=== PATIENT | female | born 1940 | race Caucasian/White ===

== ENCOUNTER 2020-06-11 08:01 | Emergency (ER) | payer MEDICARE, SELFPAY ==
[2020-06-11 08:13] VITALS: BP 149/86; PULSE 93; RESP 18; TEMP 36.7; O2SAT 100
--- NOTE | 2020-06-11 08:18 | ED.GENADULT ---
HPI - General Adult General Chief complaint: Back Pain/Injury Stated complaint: Lower back pain Time Seen by Provider: 06/11/20 08:18 Source: patient and RN notes reviewed Mode of arrival: ambulatory Limitations: no limitations History of Present Illness HPI narrative: 80-year-old female presents with complaints of diffused lower back pain for the past 4 days. Ibuprofen 600mg (last on 06/10/20 @22:00) and heat with little to no relief. Denies new injuries or falls. Denies radiating pain, numbness, or tingling. Denies fever or chills. No upper or lower extremity pain or weakness. Exacerbating factors consist of prolong sitting. Denies nausea, vomiting, or abdominal pain. Denies problems with urinating or having a bowel movement, LBM on 06/10/20 per patient and normal. No flank pain or hematuria or dysuria. The patient reports she have not been diagnosed with COVID-19. The patient reports she is not waiting for the results of a COVID-19 lab test. The patient reports she do not have fever, chills, weakness, or fatigue. The patient reports she do not have a new or worsening cough or shortness of breath. Denies chest pain. The patient reports she do not have any rhinorrhea, congestion, sore throat, loss of taste, and diarrhea. Tolerating po intake well. Denies recent traveling. Denies concerns for COVID-19 or exposures been home with limited outdoor exposure except for essential household needs and return home. At this time, patient is not suspected of having COVID-19. Some parts of this dictation were generated by voice recognition software and may contain typographical and/or grammatical inaccuracies. Related Data Allergies Allergy/AdvReac Type Severity Reaction Status Date / Time No Known Allergies Allergy Verified 06/11/20 08:17 Review of Systems Review of Systems: Narrative: CONSTITUTIONAL: Denies fever, chills, sweats. EYES: Denies visual changes, redness, discharge. ENT: Denies rhinorrhea, congestion, sore throat, otalgia. CARDIOVASCULAR: Denies chest pain, palpitations, edema. RESPIRATORY: Denies dyspnea, wheezing, cough. GASTROINTESTINAL: Denies abdominal pain, nausea, vomiting, diarrhea. GENITOURINARY: Denies dysuria, hematuria, abnormal discharge. SKIN: Denies rash or itching. MUSCULOSKELETAL: Complains of diffused lower back pain. Denies joint pain or myalgia. NEUROLOGIC: Denies numbness or focal weakness. PSYCHIATRIC: Denies anxiety or depression. All systems reviewed & are unremarkable except as noted in HPI and below PMFSH Past Medical History Medical History (Updated 06/11/20 @ 08:42 by PHILIP Taveras) Degenerative joint disease of right hip Right clavicle fracture Surgical History Surgical History (Updated 06/11/20 @ 08:36 by PHILIP Taveras) History of arthroscopic knee surgery Right History of hip replacement, total Right History of hysterectomy 1982 Family History Family History Father Family history of premature coronary heart disease, Onset Age: 63 Patient's father is Mother Depression Social History Social History (Updated 06/11/20 @ 08:37 by PHILIP Taveras) Smoking status: Never smoker Tobacco type: cigarettes Second hand tobacco smoke exposure: No Alcohol intake: current Substance use: never Living arrangements: alone Occupation/Education: retired Gender identity (if verbalized by the patient): Female Exam Narrative: Exam Narrative: GENERAL: This is a well-nourished, well-developed patient, in no apparent distress. Talks in full sentences without deficits and ambulates with steady gait without dyspnea. HEAD: normocephalic, atraumatic. EYES: PERRL. Sclera clear/white. Vision is grossly intact. NECK: Neck supple, non-tender without lymphadenopathy, masses or thyromegaly. CARDIOVASCULAR: Regular rate and rhythm without murmurs, gallops, or ru
[2020-06-11] MEDS: KETOROLAC (*BKC) 60 MG/2 ML VIAL IM (08:35)
== END 2020-06-11 09:07 | disposition home or self-care (01) ==
PROVIDERS: Emergency Provider Nurse Practitioner Family; PCP Family Medicine
DX: M54.5 Low back pain (principal); M16.11 Unilateral primary osteoarthritis, right hip; Z96.641 Presence of right artificial hip joint
CPT/HCPCS: 81003; 96372; 99213; G0463; J1885

== ENCOUNTER 2020-10-30 08:00 | Emergency (ER) | payer MEDICARE, SELFPAY ==
--- NOTE | ~2020-10-30 | XR_ITS ---
EXAMINATION: XR hip LT min 2V DATE: 10/30/2020 08:58 INDICATION: Left hip pain. TECHNIQUE: 3 views of left hip were obtained. COMPARISON: Pelvis radiograph 01/10/2016 FINDINGS: Bone alignment is normal. No fracture. Left hip joint space is normal. IMPRESSION: 1. Normal left hip. Reviewed, dictated and finalized at location A. SETTER IMPRESSION: 1. Normal left hip.
--- NOTE | 2020-10-30 08:18 | ED.BACK ---
HPI - Back Pain/Injury General Chief Complaint: Extremity Problem,Nontraumatic Stated Complaint: severe left leg pain Time Seen by Provider: 10/30/20 08:16 Source: patient and RN notes reviewed Mode of arrival: ambulatory Limitations: no limitations History of Present Illness HPI Narrative: 80-year-old female presents with concern for pain that starts in her left buttock and shoots down her left thigh. She denies any injury, trauma, falls. Reports no pain when she is lying in bed, when she is sitting. Reports pain with transferring, walking. Reports she has been using a walker to assist with ambulation, she does not normally use a walker. Reports she has been using a chair on wheels to scoot around at home to avoid pain. Reports she has been taking ibuprofen with no relief. Reports history of low back pain, does not report current back pain. She denies perianal anesthesia, loss of bowel or bladder function, fever, abdominal pain, bruising, redness, swelling, rash. She denies groin pain. Denies dysuria, hematuria, flank pain. Denies calf redness, swelling, pain. MD elicited complaint: other (Left buttock and thigh pain) Related Data Allergies Allergy/AdvReac Type Severity Reaction Status Date / Time No Known Allergies Allergy Verified 10/30/20 08:16 Review of Systems Review of Systems: Narrative: CONSTITUTIONAL: Denies malaise, chills, sweats, or fever. CARDIOVASCULAR: Denies chest pain, palpitations, or edema. RESPIRATORY: Denies cough or dyspnea. GASTROINTESTINAL: Denies abdominal pain, nausea, vomiting, diarrhea, bloody, or mucous stools. GENITOURINARY: Denies dysuria or hematuria. SKIN: Denies rash, redness, bruising MUSCULOSKELETAL: Denies back pain. Reports right shooting leg pain NEUROLOGIC: Denies numbness, weakness All systems reviewed & are unremarkable except as noted in HPI and below PMFSH Past Medical History Medical History (Updated 10/30/20 @ 09:03 by Oneyda Robert NP) Degenerative joint disease of right hip Right clavicle fracture Surgical History Surgical History (Updated 06/11/20 @ 08:36 by PHILIP Taveras) History of arthroscopic knee surgery Right History of hip replacement, total Right History of hysterectomy 1982 Family History Family History Father Family history of premature coronary heart disease, Onset Age: 63 Patient's father is Mother Depression Social History Social History (Updated 06/11/20 @ 08:37 by PHILIP Taveras) Smoking status: Never smoker Tobacco type: cigarettes Second hand tobacco smoke exposure: No Alcohol intake: current Substance use: never Gender identity (if verbalized by the patient): Female Comments At time of signature, agree with nursing past medical, surgical, social and family history. There is no relevant family history pertinent to the presenting complaint Exam Narrative: Exam Narrative: GENERAL: Well-appearing, well-nourished, and in no acute distress. HEAD: Normocephalic, atraumatic. EYES: PERRLA and EOMI. NECK: Supple. No lymphadenopathy. CHEST: Clear to auscultation. No respiratory distress. HEART: Regular rate and rhythm. Distal pulses palpable and equal, cap refill <3 seconds ABDOMEN: Soft, nontender, nondistended, normal active bowel sounds, no palpable or pulsatile masses. No CVA tenderness MUSCULOSKELETAL: Normal range of motion and strength in all extremities; 5/5 strength with hip flexion and extension, dorsiflexion and extension, knee flexion and extension, plantar flexion and extension. Normal sensation in dermatomal distributions with sensitivity to light touch and pain. No midline back tenderness to palpation. No paraspinal tenderness. Transfers from lying to sitting to standing, patient slow to transfer, pain noted upon transfer SKIN: Warm, dry, no rash. No ecchymosis, erythema, open wounds to back. NEURO: No focal deficits
[2020-10-30 08:26] VITALS: BP 153/78; PULSE 96; RESP 16; TEMP 37; O2SAT 98
== END 2020-10-30 09:11 | disposition home or self-care (01) ==
PROVIDERS: Emergency Provider Nurse Practitioner; PCP Family Medicine
DX: M54.32 Sciatica, left side (principal); M16.11 Unilateral primary osteoarthritis, right hip
CPT/HCPCS: 73502; 99213; G0463

== ENCOUNTER 2021-06-12 08:06 | Emergency (ER) | payer MEDICARE, SELFPAY ==
[2021-06-12 08:16] VITALS: BP 165/75; PULSE 67; RESP 16; TEMP 37.1; O2SAT 99
--- NOTE | 2021-06-12 08:26 | ED.GENADULT ---
HPI - General Adult General Chief complaint: Back Pain/Injury Stated complaint: lower back pain /numbness Source: patient Mode of arrival: ambulatory Limitations: no limitations History of Present Illness HPI narrative: Patient is an 81-year-old female who presents to the [facility] via POV for evaluation of bilateral low back pain x 5 days. Additionally, she reports her back pain is intermittent and aching. She also reports that her back pain radiates down the front of both thighs. She is also experiencing some numbness and tingling in both legs and feet. Ibuprofen and heat provides some relief. Standing worsens pain. 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 History of sciatica and today symptoms are similar to previous episodes. Related Data Allergies Allergy/AdvReac Type Severity Reaction Status Date / Time No Known Allergies Allergy Verified 06/12/21 08:15 Review of Systems Review of Systems: Denies injury. Pertinent negatives fever, chills, sweats, change in appetite, poor p.o. intake, malaise, headache, stiffness, spasms, abdominal pain, nausea, vomiting, diarrhea, constipation, dysuria, urinary frequency/urgency, hematuria, urinary retention, flank pain, bladder/bowel incontinence, skin color changes, deformity, loss of sensation, weakness, confusion, decreased ROM, difficulty with ambulation/coordination, chest pain, heart palpitations/murmurs, and sob. [facility] Past Medical History Medical History Degenerative joint disease of right hip Polio Right clavicle fracture Right knee meniscal tear Surgical History Surgical History History of arthroscopic knee surgery Right History of hip replacement, total Right History of hysterectomy 1982 Family History Family History Father Family history of premature coronary heart disease, Onset Age: 63 Patient's father is Mother Depression Social History Social History Social History: Single Smoking status: Never smoker Tobacco type: cigarettes Second hand tobacco smoke exposure: No Alcohol intake: current Alcohol use details: Twice a month pt drinks wine. Substance use: never Substance use type: does not use Gender identity (if verbalized by the patient): Female Sexual Orientation (if Verbalized by the Patient): Straight or Heterosexual Comments I have reviewed and agree with the patient's past medical, surgical, social, and family hx as documented by the RN. There is no relevant family history pertinent to the presenting complaint. Exam Narrative: GENERAL: Well-appearing, well-nourished, and in no acute distress. HEAD: Normocephalic, atraumatic. NECK: Supple. No lymphadenopathy or nuchal rigidity. No evidence of pain, decreased ROM, or deformity. CHEST: Lung sounds are clear to auscultation in bilateral lung zabala. No respiratory distress. HEART: Regular rate and rhythm. No murmur heard. Normal peripheral pulses. ABDOMEN: Soft, nontender, nondistended, normal active bowel sounds in all quadrants. No guarding. No rebound tenderness. No pulsatile or palpable abdominal mass(es). No CVAT EXTREMITIES: Normal range of motion. No edema. BACK: Full ROM. Mild pain elicited low back with all movement. No evidence of deformity, spasm, mass, spinal tenderness, or swelling. Bilateral SLR tests negative. Normal gait. SKIN: Warm, dry, no rash. No skin color changes. Excellent turgor. NEURO: No focal deficits. Alert and oriented x3. NIH Stroke Scale/Score (NIHSS) from [email or web address] on 06/12/2021 RESULT SUMMARY: 0 points NIH Stroke Scale INPUTS: 1A: Level of consciousness ?> 0 = Alert; keenly responsive 1B: Ask month
== END 2021-06-12 08:55 | disposition home or self-care (01) ==
PROVIDERS: Emergency Provider Nurse Practitioner Family; PCP Family Medicine
DX: M54.42 Lumbago with sciatica, left side (principal); M54.41 Lumbago with sciatica, right side; M16.11 Unilateral primary osteoarthritis, right hip; Z96.641 Presence of right artificial hip joint
CPT/HCPCS: 81003; 87086; 99213; G0463

== ENCOUNTER 2021-06-26 08:35 | Outpatient (CLI) | payer MEDICARE, SELFPAY ==
--- NOTE | ~2021-06-26 | XR_ITS ---
EXAMINATION: XR lumbar spine 2-3V DATE: 06/26/2021 08:53 INDICATION: Low back pain TECHNIQUE: Anteroposterior and lateral views of the lumbar spine, and cone-down lateral view of the l umbosacral junction were obtained. COMPARISON: None. FINDINGS: There is an age-indeterminate compression fracture of T12 with 30% loss of anterior vertebr al body height. The lumbar vertebral body heights are maintained. There is no lumbar spine fracture. There is no dislocation or subluxation of the lumbar spine. Mild loss of intervertebral disc space he ight is noted at L4-5 and L5-S1. Small degenerative osteophytes project from the anterior endplates o f multiple vertebral bodies. There is moderate facet osteoarthritis of the lower lumbar spine. Change s of right hip arthroplasty are noted. IMPRESSION: 1. Mild lumbar spondylosis. 2. Age-indeterminate T12 compression fracture. Reviewed, dictated and finalized at location B.
== END 2021-06-26 08:36 | disposition home or self-care (01) ==
LOC: ANHIMG 08:38
PROVIDERS: PCP Family Medicine; Visit Provider Physician Assistant
DX: M54.50 Low back pain, unspecified (principal); M47.816 Spondylosis without myelopathy or radiculopathy, lumbar region; M48.54XA Collapsed vertebra, not elsewhere classified, thoracic region, initial encounter for fracture
CPT/HCPCS: 72100

== ENCOUNTER 2021-06-27 07:46 | Outpatient (CLI) | payer MEDICARE, SELFPAY ==
[2021-06-27 08:26] LABS: Basophils Absolute Auto 0.1 K/mm3 (0.0-0.1); Eosinophils Absolute Auto 0.2 K/mm3 (0-0.3); Eosinophils Percent Auto 4.2 % (0-4.4); Hematocrit 43.4 % (37.0-47.0); Hemoglobin 14.6 g/dL (12.0-15.0); Immature Granulocyte Absolute 0.02 K/mm3 (0.00-0.031); Immature Granulocyte Percent A 0.4 % (0-0.5); Lymphocytes Absolute Auto 1.79 K/mm3 (0.9-3.2); Lymphocytes Percent Auto 35.5 % (18.3-44.2); Mean Corpuscular HGB Conc 33.6 g/dl (32-36); Mean Corpuscular Hemoglobin 33.2 pg (26-34); Mean Corpuscular Volume 98.6 fl (80-100); Mean Platelet Volume 9.9 fl (7.4-10.4); Monocytes Absolute Auto 0.5 K/mm3 (0.1-0.6); Monocytes Percent Auto 9.5 % (2.6-8.5); Neutrophils Absolute Auto 2.5 K/mm3 (1.3-6.7); Neutrophils Percent Auto 49.4 % (45.5-73.1); Platelet Count Result 182 k/mm3 (150-375); Red Cell Distribution Width 12.6 % (11.5-14.5)
[2021-06-27 08:41] LABS: Alanine Aminotransferase 28 U/L (4-35); Albumin Level 4.4 g/dL (3.5-5.1); Alkaline Phosphatase 75 U/L (38-126); Anion Gap 8 mmol/L (8-16); Aspartate Amino Transferase 27 U/L (14-36); Bilirubin,Total 1.3 mg/dL (0.2-1.3); Blood Urea Nitrogen 11 mg/dL (7-17); Calcium 9.8 mg/dL (8.4-10.2); Carbon Dioxide 23 mmol/L (22-30); Chloride 109 mmol/L (98-107); Cholesterol 204 mg/dL (0-200); Estimated Glomerular Filt Rate > 60; Glucose 100 mg/dL (65-110); HDL Direct 74 mg/dL; Potassium 4.2 mmol/L (3.4-5.0); Sodium 140 mmol/L (137-145); Triglycerides 100 mg/dL (<150)
[2021-06-27 08:52] LABS: LDL Cholesterol Direct 116 mg/dL
[2021-06-27 09:28] LABS: Erythrocyte Sedimentation Rate 6 mm/hr (0-20)
[2021-07-01 17:17] LABS: Vitamin D 1,25 (OH)2 Total 40 pg/mL (18-72); Vitamin D2 1,25 (OH)2 <8 pg/mL; Vitamin D3 1,25 (OH)2 40 pg/mL
== END 2021-06-27 07:47 | disposition home or self-care (01) ==
LOC: ANHLAB 07:52
PROVIDERS: PCP Family Medicine; Visit Provider Physician Assistant
DX: E55.9 Vitamin D deficiency, unspecified (principal); I10 Essential (primary) hypertension; L40.9 Psoriasis, unspecified; M25.50 Pain in unspecified joint; E78.2 Mixed hyperlipidemia
CPT/HCPCS: 36415; 80053; 80061; 82652; 85025; 85652

== ENCOUNTER 2021-07-12 08:09 | Outpatient (CLI) | payer MEDICARE, SELFPAY ==
--- NOTE | ~2021-07-12 | CT_ITS ---
EXAMINATION: CT lumbar spine wo con DATE: 07/12/2021 08:52 INDICATION: Low back pain. TECHNIQUE: Computed tomography (CT) of the lumbar spine was performed without intravenous contrast. A utomated exposure control and iterative reconstruction technique were employed. The dose-length produ ct was 1071.71 mGy-cm. COMPARISON: Lumbar spine radiographs 06/26/2021 FINDINGS: There is 4 degrees levocurvature of lumbar spine. There is a chronic burst fracture of T12 with 2/5 loss of height and retropulsion of bone 4 mm into central spinal canal with mild central can al stenosis. Intervertebral disc heights are normal in lumbar spine. The following disc levels are sp ecifically discussed: L1-L2: The disc does not extend beyond the endplate margin. There is mild bilateral facet joint osteo arthritis. There is no neural foraminal stenosis. There is no central canal stenosis. L2-L3: The disc is bulging. There is mild bilateral facet joint osteoarthritis. There is mild bilater al neural foraminal stenosis. There is mild central canal stenosis. L3-L4: The disc is bulging. There is mild bilateral facet joint osteoarthritis. There is mild bilater al neural foraminal stenosis. There is mild central canal stenosis. L4-L5: The disc is bulging. There is severe bilateral facet joint osteoarthritis. There is moderate b ilateral neural foraminal stenosis. There is moderate central canal stenosis. L5-S1: The disc is bulging. There is severe bilateral facet joint osteoarthritis. There is mild bilat eral neural foraminal stenosis. There is mild central canal stenosis. IMPRESSION: 1. Chronic T12 burst fracture. 2. Mild lumbar spondylosis. Reviewed, dictated and finalized at location A. RVISOR CORE SHOP
== END 2021-07-12 08:10 | disposition home or self-care (01) ==
LOC: ANHIMG 08:13
PROVIDERS: PCP Family Medicine; Visit Provider Family Medicine
DX: S22.081A Stable burst fracture of T11-T12 vertebra, initial encounter for closed fracture (principal); X58.XXXA Exposure to other specified factors, initial encounter; G62.9 Polyneuropathy, unspecified; M54.50 Low back pain, unspecified; M47.896 Other spondylosis, lumbar region
CPT/HCPCS: 72131

== ENCOUNTER → 2021-08-01 13:41 | Outpatient (CLI) | payer MEDICARE, SELFPAY ==
--- NOTE | ~2021-08-01 | MR_ITS ---
EXAMINATION: MR lumbar spine wo con DATE: 08/01/2021 15:43 INDICATION: Lumbar radiculopathy. TECHNIQUE: Magnetic resonance imaging (MRI) of the lumbar spine was performed without intravenous con trast. Sequences included sagittal T2-weighted FSE, sagittal T2-weighted FS FSE, sagittal T1-weighted FSE, and axial T2-weighted FSE. COMPARISON: CT lumbar spine 07/12/2021 FINDINGS: There is 4 degrees levocurvature of lumbar spine. Vertebral body heights are normal in lumb ar spine. There is mildly decreased disc height at L4-L5. At T11-T12, there is severe central canal s tenosis with cord compression. The conus medullaris is at L1-L2. Partially visualized is a 4.3 cm cys t in right kidney. The following disc levels are specifically discussed: L1-L2: The disc does not extend beyond the endplate margin. There is moderate bilateral facet joint o steoarthritis. There is no neural foraminal stenosis. There is no central canal stenosis. L2-L3: The disc is mildly bulging. There is mild bilateral facet joint osteoarthritis. There is mild right neural foraminal stenosis. There is mild central canal stenosis. L3-L4: The disc is mildly bulging. There is moderate bilateral facet joint osteoarthritis. There is m ild bilateral neural foraminal stenosis. There is no central canal stenosis. L4-L5: The disc is bulging and has an annular fissure. There is severe bilateral facet joint osteoart hritis. There is moderate bilateral neural foraminal stenosis. There is moderate central canal stenos is. L5-S1: The disc is bulging. There is severe bilateral facet joint osteoarthritis. There is mild bilat eral neural foraminal stenosis. There is no central canal stenosis. IMPRESSION: 1. Severe central canal stenosis with cord compression at T11-T12, which will be further discussed on the thoracic spine MRI. 2. Moderate lumbar spondylosis. Reviewed, dictated and finalized at location A. FOLIO ACCOUNTANT IMPRESSION: 1. Severe central canal stenosis with cord compression at T11-T12, which will b e further discussed on the thoracic spine MRI. 2. Moderate lumbar spondylosis.
--- NOTE | ~2021-08-01 | MR_ITS ---
EXAMINATION: MR cervical spine wo con DATE: 08/01/2021 15:44 INDICATION: Cervical radiculopathy. TECHNIQUE: Magnetic resonance imaging (MRI) of the cervical spine was performed without intravenous c ontrast. Sequences included sagittal T2-weighted FSE, sagittal STIR FSE, sagittal T1-weighted FSE, ax ial MERGE, and axial T2-weighted FSE. COMPARISON: None FINDINGS: Bone alignment is normal. Vertebral body heights are normal. There is mildly decreased disc height at C4-C5 and severely decreased disc height from C5-C6 through C7-T1 with endplate remodeling . The spinal cord signal intensity is normal. The following disc levels are specifically discussed: C2-C3: The disc does not extend beyond the endplate margin. There is no uncovertebral joint osteoarth ritis. There is mild bilateral facet joint osteoarthritis. There is no neural foraminal stenosis. The re is no central canal stenosis. C3-C4: The disc does not extend beyond the endplate margin. There is mild left uncovertebral joint os teoarthritis. There is mild bilateral facet joint osteoarthritis. There is mild left neural foraminal stenosis. There is no central canal stenosis. C4-C5: The disc is bulging. There is mild bilateral uncovertebral joint osteoarthritis. There is mode rate right and mild left facet joint osteoarthritis. There is mild bilateral neural foraminal stenosi s. There is mild central canal stenosis. C5-C6: The disc is bulging. There is severe bilateral uncovertebral joint osteoarthritis. There is se jasbir bilateral facet joint osteoarthritis. There is moderate bilateral neural foraminal stenosis. The re is mild central canal stenosis. C6-C7: The disc is bulging. There is severe bilateral uncovertebral joint osteoarthritis. There is mo derate bilateral facet joint osteoarthritis. There is mild right and moderate left neural foraminal s tenosis. There is mild central canal stenosis. C7-T1: The disc is bulging. There is severe bilateral uncovertebral joint osteoarthritis. There is se jasbir bilateral facet joint osteoarthritis. There is moderate bilateral neural foraminal stenosis. The re is mild central canal stenosis. IMPRESSION: 1. Severe cervical spondylosis. Reviewed, dictated and finalized at location A. RT DEVELOPER
--- NOTE | ~2021-08-01 | MR_ITS ---
EXAMINATION: MR thoracic spine wo con DATE: 08/01/2021 15:43 INDICATION: Thoracic back pain. TECHNIQUE: Magnetic resonance imaging (MRI) of the thoracic spine was performed without intravenous c ontrast. Sagittal localizer T1-weighted FSE of the cervical spine was obtained. Thoracic spine sequen bo included sagittal T2-weighted FSE, sagittal T1-weighted FSE, sagittal T2-weighted FS FSE, and axi al T2-weighted FSE. COMPARISON: CT lumbar spine 07/12/2021 FINDINGS: There is 4 degrees dextrocurvature of thoracic spine. There is a chronic burst fracture of T12 with 2/5 loss of height and retropulsion of bone 4 mm into central spinal canal. There is mildly decreased disc height at T4-T5, moderately decreased disc height at T5-T6 and T6-T7, and mildly decre ased disc height from T7-T8 through T9-T10. There is multilevel facet joint osteoarthritis, severe in upper and lower thoracic spine. The discs are bulging from T6-T7 through T9-T10 with mild central ca nal stenosis. At T11-T12, there is a 15 mm synovial cyst. At T11-T12, there is severe central canal s tenosis with ventral and dorsal indentation of the spinal cord and increased T2-weighted signal inten sity in the spinal cord, consistent with myelomalacia. There is multilevel mild neural foraminal sten osis bilaterally. At T1-T2, there is moderate left neural foraminal stenosis. IMPRESSION: 1. Severe central canal stenosis at T11-T12 secondary to an old burst fracture and a synovial cyst. 2. 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 3. Mild to moderate spondylosis at other levels. Reviewed, dictated and finalized at location A. ILE AND MISSILE CHECKOUT TECHNICIAN
== END ==
PROVIDERS: PCP Family Medicine; Visit Provider Nurse Practitioner Adult Health
DX: M47.894 Other spondylosis, thoracic region (principal); M47.22 Other spondylosis with radiculopathy, cervical region; M47.26 Other spondylosis with radiculopathy, lumbar region
CPT/HCPCS: 72141; 72146; 72148

== ENCOUNTER 2021-10-26 18:26 | Emergency (ER) | payer MEDICARE, SELFPAY ==
[2021-10-26 18:41] VITALS: BP 98/56; PULSE 111; RESP 18; TEMP 38.2; O2SAT 99
[2021-10-26 18:42] VITALS: BP 98/56; PULSE 111; RESP 18; TEMP 38.2; O2SAT 99
--- NOTE | 2021-10-26 18:55 | ED.FEMALEGU ---
HPI - Female Genitourinary General Chief complaint: Urogenital-Female Stated complaint: UTI Time Seen by Provider: 10/26/21 18:55 Source: patient, RN notes reviewed and old records reviewed Mode of arrival: ambulatory Limitations: no limitations History of Present Illness HPI Narrative: 81-year-old female presents to the [facility] with complaints of I have a UTI. Reports pain with urination, frequency and urgency. Denies incontinence. 8 weeks ago had spinal surgery. Walking with a walker. Patient appears nontoxic otherwise healthy. Alert and oriented. MD elicited complaint: UTI Related Data Home Medications Medication Instructions Recorded Confirmed cholecalciferol (vitamin D3) 50 50 mcg PO DAILY 06/24/21 10/26/21 mcg (2,000 unit) capsule Allergies Allergy/AdvReac Type Severity Reaction Status Date / Time No Known Allergies Allergy Verified 07/05/21 09:05 Review of Systems Review of Systems: All systems reviewed & are unremarkable except as noted in HPI and below Constitutional: Constitutional: Reports no additional constitutional complaints, Denies chills and Denies fatigue Eyes: Eyes: Reports no additional eye complaints ENT: Reports system reviewed and no additional complaints, except as documented Cardiovascular: Cardiovascular: Reports no additional cardiovascular complaints and Denies chest pain Respiratory: Respiratory: Reports no additional respiratory complaints, Denies cough, Denies dyspnea and Denies wheezing Gastrointestinal: Gastrointestinal: Reports no additional gastrointestinal complaints, Denies abdominal pain, Denies diarrhea, Denies nausea and Denies vomiting Genitourinary: Genitourinary: Reports as per HPI, Reports nocturia, Reports dysuria, Denies flank pain and Denies vaginal discharge Musculoskeletal: Musculoskeletal: Reports no additional musculoskeletal complaints and Denies back pain Integumentary/Breasts: Skin/Breast: Reports system reviewed and no additional complaints, except as docu Neurologic: Reports system reviewed and no additional complaints, except as documented Psychiatric: Psychiatric: Reports no additional psychiatric complaints Endocrine: Endocrine: Denies fatigue Allergic/Immunologic: Allergic/Immunologic: Reports no additional allergic/immunologic complaints [facility] Past Medical History Medical History Degenerative joint disease of right hip HTN (hypertension) Polio Right clavicle fracture Right knee meniscal tear Surgical History Surgical History (Updated 10/27/21 @ 19:34 by Oneyda Jackson APRN) H/O Spinal surgery History of arthroscopic knee surgery Right History of hip replacement, total Right History of hysterectomy 1982 Family History Family History Father Family history of premature coronary heart disease, Onset Age: 63 Patient's father is Mother Depression Social History Social History Social History: Single Smoking status: Never smoker Second hand tobacco smoke exposure: No Alcohol intake: current Alcohol use details: Twice a month pt drinks wine. Substance use: never Substance use type: does not use Gender identity (if verbalized by the patient): Female Sexual Orientation (if Verbalized by the Patient): Straight or Heterosexual Comments At the time of my signature, I reviewed and agree with the nursing past medical, surgical, social, and family history. There is no relevant family history pertinent to the patient complaint. Exam Const: General: cooperative, healthy appearing, comfortable, no acute distress, well developed and alert Nutritional Appearance: well nourished Orientation/consciousness: patient oriented x3 Limitations: no limitations HENMT: Head: normal to inspection Ears: external ears normal
[2021-10-26] MEDS: cefTRIAXone 1 GM, LIDOCAINE HCL 1% LOCAL INJ 2.1 ML IM (19:08)
[2021-10-26 19:21] VITALS: PULSE 100
== END 2021-10-26 19:25 | disposition home or self-care (01) ==
PROVIDERS: Emergency Provider Nurse Practitioner; PCP Family Medicine
DX: N30.01 Acute cystitis with hematuria (principal); M16.11 Unilateral primary osteoarthritis, right hip; I10 Essential (primary) hypertension; Z96.641 Presence of right artificial hip joint
CPT/HCPCS: 81003; 96372; 99213; G0463; J0696

== ENCOUNTER → 2022-09-30 08:16 | Outpatient (CLI) | payer MEDICARE, SELFPAY ==
--- NOTE | ~2022-09-30 | XR_ITS ---
EXAMINATION: XR lumbar spine 6V w bending DATE: 09/30/2022 09:11 INDICATION: Back pain after fall TECHNIQUE: Anteroposterior, lateral in neutral, flexion and extension, and bilateral oblique views of the lumbar spine, and cone-down lateral view of the lumbosacral junction were obtained. COMPARISON: 06/26/2021 FINDINGS: There are changes of interval posterior thoracolumbar fusion. T12 compression fracture is s table. Lumbar vertebral body alignment is normal. There is mild loss of intervertebral disc space hei ght at L4-5. The lumbar vertebral body heights are maintained. There is no hypermobility with flexion or extension. There is no evidence of hardware failure. 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 IMPRESSION: 1. Moderate lumbar spondylosis without acute findings or significant interval change. Reviewed, dictated and finalized at location L. 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 Moderate lumbar spondylosis without acute findings or significant interval c jodie.
--- NOTE | ~2022-09-30 | XR_ITS ---
Thoracic spine: Clinical Indication: Pain AP and lateral views were performed. Findings: T12 compression deformity noted. There is normal alignment of the vertebrae otherwise. The intervertebral disc spaces appear normal. Thoracolumbar spinal fixation hardware is present extendin g from T10 through the visualized upper thoracic spine. Paravertebral soft tissues appear normal. Impression: T12 compression deformity with surrounding thoracolumbar spinal fixation hardware. Reviewed, dictated and finalized at location . [employer] Impression: T12 compression deformity with surrounding thoracolumbar spinal fixation maris mcclure
== END ==
PROVIDERS: PCP Family Medicine; Visit Provider Nurse Practitioner Family
DX: M54.6 Pain in thoracic spine (principal); M47.896 Other spondylosis, lumbar region
CPT/HCPCS: 72072; 72114

== ENCOUNTER 2022-10-03 14:00 | Outpatient (CLI) | payer MEDICARE, SELFPAY ==
[2022-10-03 15:21] LABS: Basophils Absolute Auto 0.1 K/mm3 (0.0-0.1); Basophils Percent Auto 0.7 % (0.2-1.2); Eosinophils Absolute Auto 0.2 K/mm3 (0-0.3); Hemoglobin 13.6 g/dL (12.0-15.0); Immature Granulocyte Absolute 0.03 K/mm3 (0.00-0.031); Immature Granulocyte Percent A 0.4 % (0-0.5); Lymphocytes Absolute Auto 2.35 K/mm3 (0.9-3.2); Mean Corpuscular Hemoglobin 32.8 pg (26-34); Mean Corpuscular Volume 96.4 fl (80-100); Mean Platelet Volume 9.7 fl (7.4-10.4); Monocytes Absolute Auto 0.7 K/mm3 (0.1-0.6); Monocytes Percent Auto 8.6 % (2.6-8.5); Neutrophils Absolute Auto 5.1 K/mm3 (1.3-6.7); Neutrophils Percent Auto 60.3 % (45.5-73.1); Platelet Count Result 244 k/mm3 (150-375); Red Blood Count 4.15 M/mm3 (4.2-5.4); Red Cell Distribution Width 12.4 % (11.5-14.5); White Blood Count 8.4 K/mm3 (4.5-10.0)
[2022-10-03 15:33] LABS: Alanine Aminotransferase 22 U/L (6-35); Albumin Level 4.5 g/dL (3.5-5.1); Alkaline Phosphatase 150 U/L (38-126); Anion Gap 7 mmol/L (8-16); Aspartate Amino Transferase 24 U/L (14-36); Blood Urea Nitrogen 12 mg/dL (7-17); Calcium 9.5 mg/dL (8.4-10.2); Carbon Dioxide 26 mmol/L (22-30); Chloride 103 mmol/L (98-107); Estimated Glomerular Filt Rate > 60; Glucose 97 mg/dL (65-110); Potassium 4.2 mmol/L (3.4-5.0); Sodium 136 mmol/L (137-145)
[2022-10-03 16:08] LABS: Thyroid Stimulating Hormone Reflex 0.613 uIU/mL (0.465-4.68)
== END 2022-10-03 14:01 | disposition home or self-care (01) ==
LOC: ANHLAB 14:01
PROVIDERS: PCP Family Medicine; Visit Provider Nurse Practitioner Gerontology
DX: I10 Essential (primary) hypertension (principal); Z86.12 Personal history of poliomyelitis
CPT/HCPCS: 36415; 80053; 84443; 85025

== ENCOUNTER 2022-10-22 08:48 | Outpatient (CLI) | payer MEDICARE, SELFPAY ==
[2022-10-22 10:01] LABS: Alanine Aminotransferase 26 U/L (6-35); Albumin Level 4.3 g/dL (3.5-5.1); Alkaline Phosphatase 103 U/L (38-126); Anion Gap 5 mmol/L (8-16); Aspartate Amino Transferase 28 U/L (14-36); Blood Urea Nitrogen 8 mg/dL (7-17); Calcium 9.6 mg/dL (8.4-10.2); Carbon Dioxide 27 mmol/L (22-30); Chloride 105 mmol/L (98-107); Estimated Glomerular Filt Rate > 60; Glucose 87 mg/dL (65-110); Potassium 4.2 mmol/L (3.4-5.0); Sodium 137 mmol/L (137-145)
== END 2022-10-22 08:49 | disposition home or self-care (01) ==
PROVIDERS: PCP Family Medicine; Visit Provider Nurse Practitioner Gerontology
DX: R74.8 Abnormal levels of other serum enzymes (principal)
CPT/HCPCS: 36415; 80053

== ENCOUNTER 2023-09-16 08:02 | Emergency (ER) | payer MEDICARE, OTHER, SELFPAY ==
--- NOTE | ~2023-09-16 | XR_ITS ---
XR ankle RT min 3V, XR foot RT min 3V 09/16/2023 08:43 Indication: Right ankle pain after fall on ice Procedure: 4 views right ankle and 4 views right foot Comparison: 09/16/2023 Findings: There is an oblique minimally displaced distal fibular fracture. There are degenerative cherise nges of the ankle. Osteopenia. 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 Mild lateral sof t tissue swelling. Osteopenia. Impression: 1: Oblique minimally displaced distal fibular fracture. 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 Impression: 1: Oblique minimally displaced distal fibular fracture.
--- NOTE | 2023-09-16 08:07 | ED.FALL ---
HPI - Fall General Chief Complaint: Fall Stated Complaint: Fall Time Seen by Provider: 09/16/23 08:06 Source: patient Mode of arrival: ambulatory Limitations: no limitations History of Present Illness HPI Narrative: Analilia is a 83-year-old female patient presenting to the clinic today with complaints of a fall/injury to right ankle/foot. Reports that she went out Thursday afternoon to let the dog out and slipped on a patch of ice. States she twisted her ankle/foot. Has bruising and swelling noted to the lateral ankle and dorsal foot. Very minimal discomfort Related Data Home Medications Medication Instructions Recorded Confirmed gabapentin 300 mg capsule 300 mg PO TID 09/16/23 09/16/23 lisinopril 5 mg tablet 5 mg PO DAILY 09/16/23 09/16/23 Allergies Allergy/AdvReac Type Severity Reaction Status Date / Time No Known Allergies Allergy Verified 09/16/23 08:03 Review of Systems Review of Systems: Pertinent positives per HPI. Patient denies any fever, chills, rash, headache, visual changes, dizziness, cough, runny nose, sore throat, shortness of breath, chest pain, palpitations, nausea, vomiting, diarrhea, constipation, abdominal pain, or any urinary issues. [facility] Past Medical History Medical History Degenerative joint disease of right hip HTN (hypertension) Polio Right clavicle fracture Right knee meniscal tear Surgical History Surgical History H/O Spinal surgery History of arthroscopic knee surgery Right History of hip replacement, total Right History of hysterectomy 1982 Family History Family History Father Family history of premature coronary heart disease, Onset Age: 63 Patient's father is Mother Depression Social History Social History Social History: Single Smoking status: Never smoker Second hand tobacco smoke exposure: No Alcohol intake: current Alcohol use details: Twice a month pt drinks wine. Substance use: never Substance use type: does not use Living arrangements: alone Occupation/Education: retired Gender identity (if verbalized by the patient): Female Sexual Orientation (if Verbalized by the Patient): Straight or Heterosexual Comments At the time of my signature, I reviewed and agree with the nursing past medical, surgical, social, and family history. There is no relevant family history pertinent to the patient complaint. Exam Narrative: General: Well-developed, well nourished, in no apparent distress Head: Normocephalic, atraumatic. Cardio: Regular rate and rhythm, s1 and s2 normal, no murmur appreciated. Resp: Clear to auscultation bilaterally, no rhonchi, rales, wheezing or rubs. Musculoskeletal: No deformity, tender to palpation over the dorsal foot and lateral right ankle, grossly normal range of motion, mild pain with range of motion and bearing weight, muscle strength strong and equal, peripheral pulse strong, no edema, no cyanosis, normal gait and station Course Course Emergency Course: Portions of this record may have been created with voice recognition software. Level of Care: Express Care Visit Vital Signs Vital signs: Vital Signs Temperature 36.9 C 09/16/23 08:24 Pulse Rate 92 09/16/23 08:24 Respiratory Rate 18 09/16/23 08:24 Blood Pressure 122/71 09/16/23 08:24 Pulse Oximetry 100 09/16/23 08:24 Oxygen Delivery Room Air 09/16/23 08:24 Temperature 36.9 C 09/16/23 08:24 Pulse Rate 92 09/16/23 08:24 Respiratory Rate 18 09/16/23 08:24 Blood Pressure 122/71 09/16/23 08:24 Pulse Oximetry 100 09/16/23 08:24 Oxygen Delivery Room Air 09/16/23 08:24 Vital signs reviewed MDM - Fall MDM Narrative Medical decision making narrative
[2023-09-16 08:24] VITALS: BP 122/71; PULSE 92; RESP 18; TEMP 36.9; O2SAT 100
== END 2023-09-16 10:15 | disposition home or self-care (01) ==
PROVIDERS: Emergency Provider Nurse Practitioner Family; PCP Family Medicine
DX: S82.831A Other fracture of upper and lower end of right fibula, initial encounter for closed fracture (principal); S93.04XA Dislocation of right ankle joint, initial encounter; W00.0XXA Fall on same level due to ice and snow, initial encounter; I10 Essential (primary) hypertension; Z96.641 Presence of right artificial hip joint
CPT/HCPCS: 29515; 73610; 73630; 99214; G0463

== ENCOUNTER 2023-10-16 07:54 | Outpatient (CLI) | payer MEDICARE, OTHER, SELFPAY ==
--- NOTE | ~2023-10-16 | XR_ITS ---
EXAMINATION: XR ankle RT 2V INDICATION: Nondisplaced fracture of the lateral malleolus, follow-up TECHNIQUE: Two views of the right ankle are obtained. COMPARISON: 09/16/2023 FINDINGS: Again seen is an oblique fracture of the distal fibula which extends below the level of the tibial plafond. A small amount of calcified callus has developed at the fracture site. Alignment is unchanged. No additional fracture is identified. There is mild osteoarthritis of the ankle. IMPRESSION: 1. Oblique fracture of the distal fibula with routine healing. 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
== END 2023-10-16 07:55 | disposition home or self-care (01) ==
LOC: ANHIMG 08:00
PROVIDERS: PCP Family Medicine; Visit Provider Orthopaedic Surgery
DX: S82.64XD Nondisplaced fracture of lateral malleolus of right fibula, subsequent encounter for closed fracture with routine healing (principal); X58.XXXD Exposure to other specified factors, subsequent encounter
CPT/HCPCS: 73600

== ENCOUNTER 2025-03-20 10:29 | Outpatient (CLI) | payer MEDICARE, OTHER, SELFPAY ==
--- NOTE | ~2025-03-20 | XR_ITS ---
XR lumbar spine 2-3V, XR thoracic spine 2V 03/20/2025 10:46 Indication: Arthrodesis status. Procedure: 3 views lumbar spine Comparison: 09/30/2022 Findings: There is an age-indeterminate superior endplate compression fracture of L4, new since prior study. There is severe multilevel facet hypertrophy. There are chronic superior endplate compression fractures of T11 and T12 without significant change. There are pedicle screws and fixation rods inés ersing T10-L2. Hardware appears to be intact. There is mild thoracic spondylosis. No paraspinal soft tissue abnormality. Impression: 1: Age-indeterminate L4 superior endplate compression fracture, new since 09/30/2022. 2: Stable chronic compression fractures of T11 and T12. 3: Severe lumbar spondylosis with mild thoracic spondylosis. Reviewed, dictated and finalized at location A. Impression: 1: Age-indeterminate L4 superior endplate compression fracture, new since 09/30. 2: Stable chronic compression fractures of T11 and T12. 3: Severe lumbar spondylosis with mild thoracic spondylosis. Impression: 1: Age-indeterminate L4 superior endplate compression fracture, new since 09/30. 2: Stable chronic compression fractures of T11 and T12. 3: Severe lumbar spondylosis with mild thoracic spondylosis.
== END 2025-03-20 10:30 | disposition home or self-care (01) ==
PROVIDERS: PCP Family Medicine; Visit Provider Student in an Organized Health Care Education/Training Program
DX: M81.0 Age-related osteoporosis without current pathological fracture (principal); Z98.1 Arthrodesis status; M47.894 Other spondylosis, thoracic region; M47.896 Other spondylosis, lumbar region
CPT/HCPCS: 72070; 72100